=== PATIENT | female | born 1970 | race Caucasian/White ===

== ENCOUNTER 2017-02-23 13:39 | Emergency (ER) | payer OTHER ==
[~2017-02-23] VITALS: Ht 172.7 cm; Wt 86.2 kg
[2017-02-23] MEDS ORDERED: ONDANSETRON PF 4 MG/2 ML VIAL. IV ONE (14:00)
[2017-02-23] MEDS ORDERED: fentaNYL PF 100 MCG/2 ML VIAL IV ONE (14:00)
[2017-02-23 14:18] LABS: BASO # 0.1 x10^3/uL (0.0-0.2); BASO % 1 % (0-3); EOS # 0.2 x10^3/uL (0.0-0.7); EOS % 2 % (0-3); HEMOGLOBIN 14.5 g/dL (12.0-15.5); LYMPH # 2.2 x10^3/uL (1.0-4.8); LYMPH % 23 % (24-48); MEAN CORPUSCULAR HEMOGLOBIN 32 pg (25-35); MEAN CORPUSCULAR HGB CONC 35 g/dL (31-37); MEAN CORPUSCULAR VOLUME 92 fL (79-100); MONO # 0.7 x10^3/uL (0.0-1.1); MONO % 7 % (0-9); NEUT # 6.4 x10^3uL (1.8-7.7); NEUT % 67 % (31-73); PLATELET COUNT 290 x10^3/uL (140-400); RED BLOOD COUNT 4.56 x10^6/uL (3.50-5.40); RED CELL DISTRIBUTION WIDTH 13.1 % (11.5-14.5); WHITE BLOOD COUNT 9.6 x10^3/uL (4.0-11.0)
[2017-02-23 14:27] LABS: ALBUMIN 4.2 g/dL (3.4-5.0); ALBUMIN/GLOBULIN RATIO 1.1 (1.0-1.7); CALCIUM 9.6 mg/dL (8.5-10.1); CREATININE 1.1 mg/dL (0.6-1.0); GFR 53.2; POTASSIUM 3.6 mmol/L (3.5-5.1); TOTAL BILIRUBIN 0.4 mg/dL (0.2-1.0); TOTAL PROTEIN 7.9 g/dL (6.4-8.2)
--- NOTE | 2017-02-23 14:35 | PHYS DOC ---
Past History Past Medical History: Other Past Surgical History: Appendectomy, Tonsillectomy Alcohol Use: None Drug Use: None Adult General Chief Complaint Chief Complaint: MECHANICAL FALL HPI HPI Patient is a 46-year-old female presenting to the emergency department for evaluation of low back and pelvis pain status post fall shortly prior to arrival. 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 She denies any weakness numbness but says that her toes feel cold/tingly on her right side. She is mostly pointing to her right lumbar area where the pain is the worst. She denies any head neck chest abdomen or extremity pain. There is no open wounds or abrasions. She appears to be in a significant amount of pain but she is nontoxic. Review of Systems Review of Systems Constitutional: Denies fever or chills [] Eyes: Denies change in visual acuity, redness, or eye pain [] HENT: Denies nasal congestion or sore throat [] Respiratory: Denies cough or shortness of breath [] Cardiovascular: No additional information not addressed in HPI [] GI: Denies abdominal pain, nausea, vomiting, bloody stools or diarrhea [] : Denies dysuria or hematuria [] Musculoskeletal: + back pain, joint pain [] Integument: Denies rash or skin lesions [] Neurologic: Denies headache, focal weakness. + sensory changes [] Current Medications Current Medications Current Medications Medications (Trade) Dose Ordered Sig/[facility] Start Time Stop Time Status Last Admin Dose Admin Fentanyl Citrate (Fentanyl 2ml Vial) 100 mcg 1X ONCE 02/23/17 14:00 02/23/17 14:01 UNV 02/23/17 14:00 100 MCG Ondansetron HCl (Zofran) 8 mg 1X ONCE 02/23/17 14:00 02/23/17 14:01 UNV 02/23/17 14:00 8 MG Physical Exam Physical Exam Constitutional: Well developed, well nourished, no acute distress, non-toxic appearance. [] HENT: Normocephalic, atraumatic, bilateral external ears normal, oropharynx moist, no oral exudates, nose normal. [] Eyes: PERRLA, EOMI, conjunctiva normal, no discharge. [] Neck: Normal range of motion, no tenderness, supple, no stridor. [] Cardiovascular:Heart rate regular rhythm, no murmur [] Lungs & Thorax: Bilateral breath sounds clear to auscultation [] Abdomen: Bowel sounds normal, soft, no tenderness, no masses, no pulsatile masses. [] Skin: Warm, dry, no erythema, no rash. [] Back: + midline and R paraspinal tenderness, no CVA tenderness. [] Extremities: No tenderness, no cyanosis, no clubbing, ROM intact, no edema. [] Neurologic: Alert and oriented X 3, normal motor function, 5 out of 5 flexion extension of bilateral ankles and big toe. She was in too much pain to bend her knee or hip. She says on sensory exam that she has dullness to sensation of her right lateral thigh and right calf and her big toe. Current Patient Data Vital Signs Vital Signs Date Time Temp Pulse Resp B/P (MAP) Pulse Ox O2 Delivery O2 Flow Rate FiO2 02/23/17 14:00 16 97 Room Air 02/23/17 13:59 98.8 89 Lab Results Laboratory Tests Test 02/23/17 14:05 White Blood Count 9.6 x10^3/uL (4.0-11.0) Red Blood Count 4.56 x10^6/uL (3.50-5.40) Hemoglobin 14.5 g/dL (12.0-15.5) Hematocrit 42.0 % (36.0-47.0) Mean Corpuscular Volume 92 fL (79-100) Mean Corpuscular Hemoglobin 32 pg (25-35) Mean Corpuscular Hemoglobin Concent 35 g/dL (31-37) Red Cell Distribution Width 13.1 % (11.5-14.5) Platelet Count 290 x10^3/uL (140-400) Neutrophils (%) (Auto) 67 % (31-73) Lymphocytes (%) (Auto) 23 % (24-48) L Monocytes (%) (Auto) 7 % (0-9) Eosinophils (%) (Auto) 2 % (0-3) Basophils (%) (Auto) 1 % (0-3) Neutrophils # (Auto) 6.4 x10^3uL (1.8-7.7) Lymphocytes # (Auto) 2.2 x10^3/uL (1.0-4.8) Monocytes # (Auto) 0.7 x10^3/uL (0.0-1.1) Eosinophils # (Auto) 0.2 x10^3/uL (0.0-0.7) Basophils # (Auto) 0.1 x10^3/uL (0.0-0.2) Sodium Level 139 mmol/L (136-145) Potassium Level 3.6 mmol/L (3.5-5.1) Chloride Level 100 mmol/L (98-107) Carbon Dioxide Level 28 mmol/L (21-32) Anion Gap 11 (6-14) Blood Urea Nitrogen 15 mg/dL (7-20) Creatinine 1.1 mg/dL (0.6-1.0) H Estimated GFR (Cockcroft-Gault) 53.2 BUN/Creatinine Ratio 14 (6-20) Glucose Level 104 mg/dL (70-99) H Calcium Level 9.6 mg/dL (8.5-10.1) Total Bilirubin 0.4 mg/dL (0.2-1.0) Aspartate Amino Transferase (AST) 34 U/L (15-37) Alanine Aminotransferase (ALT) 54 U/L (14-59) Alkaline Phosphatase 69 U/L (46-116) Total Protein 7.9 g/dL (6.4-8.2) Albumin 4.2 g/dL (3.4-5.0) Albumin/Globulin Ratio 1.1 (1.0-1.7) EKG EKG [] Radiology/Procedures Radiology/Procedures CT of the lumbar spine without IV contrast Indication: Extreme back pain status post fall Technique: CT of the lumbar spine without IV contrast with multiplanar reformats. Comparison: None Findings: There are 5 lumbar vertebral bodies. Grade 1 anterolisthesis of L4 over L5 noted with bilateral pars defect at L4. The vertebral body heights are maintained. There is intervertebral disc space narrowing at L4-L5 with endplate sclerosis compatible with degenerative disc disease. Segmental analysis: T12-L1: No disc bulge or herniation. No facet arthropathy. No neural foramina narrowing. L1-L2: Mild circumferential disc bulge. No facet arthropathy. No neural foramina narrowing. L2-L3: Mild circumferential disc bulge. No facet arthropathy. No neural foramina narrowing. L3-L4: Mild disc bulge. No facet arthropathy. No neural foramina narrowing. L4-L5: Grade 1 anterolisthesis with protrusion of the posterior disc. Mild facet arthropathy. Moderate right neural foramina narrowing. Mild left neural foramina narrowing. L5-S1: No disc bulge. No facet arthropathy. No neural foramina narrowing. The visualized soft tissues in the abdomen and pelvis are within normal limits. Impression: 1. Bilateral L4 pars defect with grade 1 anterolisthesis of L4 over L5 with moderate narrowing of right neural foramina. 2. Moderate L4-L5 degenerative disc disease. PQRS Compliance Statement: One or more of the following individualized dose reduction techniques were utilized for this examination: 1. Automated exposure control 2. Adjustment of the mA and/or kV according to patient size 3. Use of iterative reconstruction technique DICTATED AND SIGNED BY: MARILOU BERUMEN DATE: 02/23/171430 Exam performed: CT pelvis without contrast. History: Patient fell today, extreme back and pelvic pain. Date of service: 02/23/17. Comparison: None available Technique: Contiguous helical acquisitions are obtained through the pelvis without IV contrast. Sagittal and coronal reformatted images are obtained and reviewed. Findings: Normal alignment of both hip and sacroiliac joint is preserved. There is no acute fracture or dislocation. There is grade 1 anterolisthesis of L4 over L5 with disc space narrowing. Tiny clinical hernia. The small and large bowel loops are nondilated and unremarkable. Occasional sigmoid diverticulosis without acute diverticulitis Urinary bladder is distended. Uterus is anteverted. Impression: No acute abnormality seen in the CT pelvis. PQRS Compliance Statement: One or more of the following individualized dose reduction techniques were utilized for this examination: 1. Automated exposure control 2. Adjustment of the mA and/or kV according to patient size 3. Use of iterative reconstruction technique DICTATED AND SIGNED BY: DECLAN BENITEZ MD DATE: 02/23/17 1439 Course & Med Decision Making Course & Med Decision Making Patient with L4 bilateral pars fracture with narrowing of her disc space and anterolisthesis. She has some neurologic deficits but no motor deficits on exam. Given she is having severe pain and spasm with neurologic changes I spoke to the nurse practitioner for Dr. Leary. They agreed to see the patient at [facility]. They wanted an MRI to be done today if possible and for the hospitalist to admit the patient. Patient accepted by Dr. Simons. Dawit Disclaimer Dawit Disclaimer This chart was dictated in whole or in part using Voice Recognition software in a busy, high-work load, and often noisy Emergency Department environment. It may contain unintended and wholly unrecognized errors or omissions. Departure Departure: Impression: Primary Impression: Pars defect of lumbar spine Additional Impressions: Anterolisthesis Neural foraminal stenosis of lumbar spine Disposition: 05 XFER OTHER ([facility]) Condition: STABLE Referrals: PINKY HINOJOSA MD (PCP) Problem Qualifiers LOVE SHELTON DO Feb 23, 2017 14:35
--- NOTE | 2017-02-23 14:42 | RAD ---
CT of the lumbar spine without IV contrast Indication: Extreme back pain status post fall Technique: CT of the lumbar spine without IV contrast with multiplanar reformats. Comparison: None Findings: There are 5 lumbar vertebral bodies. Grade 1 anterolisthesis of L4 over L5 noted with bilateral pars defect at L4. The vertebral body heights are maintained. There is intervertebral disc space narrowing at L4-L5 with endplate sclerosis compatible with degenerative disc disease. Segmental analysis: T12-L1: No disc bulge or herniation. No facet arthropathy. No neural foramina narrowing. L1-L2: Mild circumferential disc bulge. No facet arthropathy. No neural foramina narrowing. L2-L3: Mild circumferential disc bulge. No facet arthropathy. No neural foramina narrowing. L3-L4: Mild disc bulge. No facet arthropathy. No neural foramina narrowing. L4-L5: Grade 1 anterolisthesis with protrusion of the posterior disc. Mild facet arthropathy. Moderate right neural foramina narrowing. Mild left neural foramina narrowing. L5-S1: No disc bulge. No facet arthropathy. No neural foramina narrowing. The visualized soft tissues in the abdomen and pelvis are within normal limits. Impression: 1. Bilateral L4 pars defect with grade 1 anterolisthesis of L4 over L5 with moderate narrowing of right neural foramina. 2. Moderate L4-L5 degenerative disc disease. PQRS Compliance Statement: One or more of the following individualized dose reduction techniques were utilized for this examination: 1. Automated exposure control 2. Adjustment of the mA and/or kV according to patient size 3. Use of iterative reconstruction technique
--- NOTE | 2017-02-23 14:44 | RAD ---
Exam performed: CT pelvis without contrast. History: Patient fell today, extreme back and pelvic pain. Date of service: 02/23/17. Comparison: None available Technique: Contiguous helical acquisitions are obtained through the pelvis without IV contrast. Sagittal and coronal reformatted images are obtained and reviewed. Findings: Normal alignment of both hip and sacroiliac joint is preserved. There is no acute fracture or dislocation. There is grade 1 anterolisthesis of L4 over L5 with disc space narrowing. Tiny clinical hernia. The small and large bowel loops are nondilated and unremarkable. Occasional sigmoid diverticulosis without acute diverticulitis Urinary bladder is distended. Uterus is anteverted. Impression: No acute abnormality seen in the CT pelvis. PQRS Compliance Statement: One or more of the following individualized dose reduction techniques were utilized for this examination: 1. Automated exposure control 2. Adjustment of the mA and/or kV according to patient size 3. Use of iterative reconstruction technique
[2017-02-23] MEDS ORDERED: PROMETHAZINE 25 MG in IV NORMAL SALINE 50ML 50 ML IV PRN (15:15)
[2017-02-23] MEDS ORDERED: PROMETHAZINE 25 MG/ML VIAL IV ONE (15:17)
[2017-02-23] MEDS ORDERED: IV NORMAL SALINE 50ML 50 ML ONE (15:17)
[2017-02-23] MEDS ORDERED: IV NORMAL SALINE 500ML 500 ML ONE (15:20)
[2017-02-23] MEDS ORDERED: MORPHINE SULFATE 4 MG/ML DISP.SYRIN. IV ONE (15:45)
[2017-02-23 16:00] VITALS: BP 158/71
== END 2017-02-23 16:24 | disposition short-term general hospital (02) ==
LOC: ER 13:39
DX: M43.06 Spondylolysis, lumbar region (principal); M48.06 Spinal stenosis, lumbar region; W01.0XXA Fall on same level from slipping, tripping and stumbling without subsequent striking against object, initial encounter; Y93.89 Activity, other specified; Y99.8 Other external cause status; Y92.89 Other specified places as the place of occurrence of the external cause
CPT/HCPCS: 36415; 51702; 72131; 72192; 80053; 85025; 85610; 85730; 96365; 96375; 99285; J2270; J2405; J2550; J3010

== ENCOUNTER 2017-07-16 15:00 | Emergency (ER) | payer OTHER ==
[~2017-07-16] VITALS: Ht 172.7 cm; Wt 86.2 kg
--- NOTE | 2017-07-16 15:17 | PHYS DOC ---
Past History Past Medical History: Other Past Surgical History: Appendectomy, Tonsillectomy Alcohol Use: None Drug Use: None Adult General Chief Complaint Chief Complaint: FEVER HPI HPI Patient is a 47 year old F who presents with fever. Her only other symptoms is a mild to moderate headache. She also describes cough and mild shortness of breath. She notes moderate nasal congestion with moderate drainage. She did have back surgery about 2 weeks ago. She developed these symptoms today. She did contact her surgeon who advised her to come to the ED. She has not take any of her medications today. She does have a history of Crohn Review of Systems Review of Systems Constitutional: Negative except history of present illness Eyes: Denies change in visual acuity, redness, or eye pain [] HENT: Neg except HPI Respiratory: Neg except HPI Cardiovascular: No additional information not addressed in HPI [] GI: Denies nausea, vomiting, bloody stools or diarrhea [] : Denies dysuria or hematuria [] Musculoskeletal: Denies back pain or joint pain [] Integument: Denies rash or skin lesions [] Neurologic: Denies headache, focal weakness or sensory changes [] Endocrine: Denies polyuria or polydipsia [] All other systems were reviewed and found to be within normal limits, except as documented in this note. Family History Family History No pertinent family medical history was reported Current Medications Current Medications Current medications were reviewed Allergies Allergies Allergies Coded Allergies Type Severity Reaction Last Updated Verified No Known Drug Allergies 02/23/17 No Physical Exam Physical Exam Constitutional: Well developed, well nourished, no acute distress, non-toxic appearance. [] HENT: Normocephalic, atraumatic, bilateral external ears normal, oropharynx moist, no oral exudates, mild nasal mucosal edema and erythema noted bilaterally Eyes: EOMI, conjunctiva normal, no discharge. [] Neck: Normal range of motion, no tenderness, supple, no stridor. [] Cardiovascular:Heart rate regular rhythm, Lungs & Thorax: Bilateral breath sounds clear to auscultation rhonchi noted in the right lower lobe Abdomen: Bowel sounds normal, soft, no tenderness, no masses, no pulsatile masses. [] Mild generalized tenderness worse in the right lower quadrant Skin: Warm, dry, no erythema, no rash. [] Surgical incision inspected on the lumbar spine noted to be well granulated well approximated and not noted to have any drainage. No surrounding erythema was noted the superior margin does not have scab over it Back: No tenderness, no CVA tenderness. [] Extremities: No tenderness, no cyanosis, no clubbing, ROM intact, no edema. [] Neurologic: Alert and oriented X 3, normal motor function, normal sensory function, no focal deficits noted. [] Psychologic: Affect normal, judgement normal, mood normal. [] Current Patient Data Vital Signs Vital Signs Date Time Temp Pulse Resp B/P (MAP) Pulse Ox O2 Delivery O2 Flow Rate FiO2 07/16/17 17:58 118 18 176/96 (122) 97 Room Air 07/16/17 16:48 101.3 122 18 137/87 (104) 96 Room Air 07/16/17 16:46 18 96 Room Air 07/16/17 15:46 18 99 Room Air 07/16/17 15:21 103.2 122 18 96 Room Air Lab Results Laboratory Tests Test 07/16/17 15:16 07/16/17 16:45 Influenza Type A (Rapid) Negative (NEGATIVE) Influenza Type B (Rapid) Negative (NEGATIVE) White Blood Count 17.9 x10^3/uL (4.0-11.0) Red Blood Count 4.13 x10^6/uL (3.50-5.40) Hemoglobin 13.3 g/dL (12.0-15.5) Hematocrit 38.1 % (36.0-47.0) Mean Corpuscular Volume 92 fL (79-100) Mean Corpuscular Hemoglobin 32 pg (25-35) Mean Corpuscular Hemoglobin Concent 35 g/dL (31-37) Red Cell Distribution Width 12.9 % (11.5-14.5) Platelet Count 301 x10^3/uL (140-400) Neutrophils (%) (Auto) 88 % (31-73) Lymphocytes (%) (Auto) 7 % (24-48) Monocytes (%) (Auto) 5 % (0-9) Eosinophils (%) (Auto) 0 % (0-3) Basophils (%) (Auto) 0 % (0-3) Neutrophils # (Auto) 15.7 x10^3uL (1.8-7.7) Lymphocytes # (Auto) 1.3 x10^3/uL (1.0-4.8) Monocytes # (Auto) 0.8 x10^3/uL (0.0-1.1) Eosinophils # (Auto) 0.0 x10^3/uL (0.0-0.7) Basophils # (Auto) 0.1 x10^3/uL (0.0-0.2) Sodium Level 135 mmol/L (136-145) Potassium Level 3.5 mmol/L (3.5-5.1) Chloride Level 96 mmol/L (98-107) Carbon Dioxide Level 26 mmol/L (21-32) Anion Gap 13 (6-14) Blood Urea Nitrogen 10 mg/dL (7-20) Creatinine 1.0 mg/dL (0.6-1.0) Estimated GFR (Cockcroft-Gault) 59.2 BUN/Creatinine Ratio 10 (6-20) Glucose Level 131 mg/dL (70-99) Calcium Level 9.2 mg/dL (8.5-10.1) Total Bilirubin 0.4 mg/dL (0.2-1.0) Alanine Aminotransferase (ALT/SGPT) 63 U/L (14-59) Alkaline Phosphatase 90 U/L (46-116) Total Protein 7.3 g/dL (6.4-8.2) Albumin 3.3 g/dL (3.4-5.0) Albumin/Globulin Ratio 0.8 (1.0-1.7) Lipase 101 U/L (73-393) EKG EKG [] Radiology/Procedures Radiology/Procedures CT SCAN OF THE ABDOMEN AND PELVIS WITH IV CONTRAST. History: Lower abdominal pain and fever and back surgery 2 weeks ago Comparison: None. Procedure: Contiguous axial images of the abdomen and pelvis were performed after the administration of 75 cc of Omni 300 IV contrast and without oral contrast. CT Abdomen with contrast: Findings: There is patchy opacity in the right middle lobe. Liver: Hypoattenuating but homogeneous Spleen: Unremarkable Pancreas: Unremarkable Adrenal Glands: Unremarkable Kidneys: Unremarkable There is no mass or lymphadenopathy. There is no free air. There is no free fluid. There is been fusion of L4-L5. CT Pelvis with Contrast: Findings: The urinary bladder appears normal. There is no free fluid. There is no lymphadenopathy. The appendix is not well seen. Impression: 1. Fatty infiltration of the liver. 2. Right middle lobe infiltrate could be discoid atelectasis or pneumonia. Course & Med Decision Making Course & Med Decision Making Pertinent Labs and Imaging studies reviewed. (See chart for details) [] Dragon Disclaimer Dragon Disclaimer This electronic medical record was generated, in whole or in part, using a voice recognition dictation system. Departure Departure: Impression: Primary Impression: Pneumonia Additional Impression: Sepsis Disposition: ADMITTED INPATIENT Condition: STABLE Referrals: PINKY HINOJOSA MD (PCP) Problem Qualifiers Primary Impression: Pneumonia Pneumonia type: due to unspecified organism Laterality: right Lung location : lower lobe of lung Qualified Codes: J18.1 - Lobar pneumonia, unspecified organism Additional Impression: Sepsis Sepsis type: sepsis due to unspecified organism Qualified Codes: A41.9 - Sepsis, unspecified organism XENA KAUFMAN MD Jul 16, 2017 15:17
[2017-07-16] MEDS ORDERED: HYDROcodone/APAP 5/325MG 1 TAB TABLET PO ONE (15:50)
[2017-07-16] MEDS ORDERED: oxyCODONE/APAP 5/325 1 TAB TABLET PO ONE (16:00)
[2017-07-16] MEDS ORDERED: ACETAMINOPHEN 500 MG TABLET PO ONE ×2 (16:00→22:30)
[2017-07-16 16:11] LABS: INFLUENZA A PATIENT NEGATIVE (NEGATIVE); INFLUENZA B PATIENT NEGATIVE (NEGATIVE)
[2017-07-16] MEDS ORDERED: IV NORMAL SALINE 1,000ML 1,000 ML IV ONE ×3 (16:30→22:30)
[2017-07-16] MEDS ORDERED: IOHEXOL 300 MG/ML 75 ML VIAL. IV ONE (17:00)
[2017-07-16 17:12] LABS: BASO # 0.1 x10^3/uL (0.0-0.2); BASO % 0 % (0-3); EOS % 0 % (0-3); HEMATOCRIT 38.1 % (36.0-47.0); HEMOGLOBIN 13.3 g/dL (12.0-15.5); LYMPH # 1.3 x10^3/uL (1.0-4.8); LYMPH % 7 % (24-48); MEAN CORPUSCULAR HEMOGLOBIN 32 pg (25-35); MEAN CORPUSCULAR HGB CONC 35 g/dL (31-37); MEAN CORPUSCULAR VOLUME 92 fL (79-100); MONO # 0.8 x10^3/uL (0.0-1.1); MONO % 5 % (0-9); NEUT # 15.7 x10^3uL (1.8-7.7); NEUT % 88 % (31-73); PLATELET COUNT 301 x10^3/uL (140-400); RED BLOOD COUNT 4.13 x10^6/uL (3.50-5.40); RED CELL DISTRIBUTION WIDTH 12.9 % (11.5-14.5); WHITE BLOOD COUNT 17.9 x10^3/uL (4.0-11.0)
[2017-07-16 17:18] LABS: ALBUMIN 3.3 g/dL (3.4-5.0); ALBUMIN/GLOBULIN RATIO 0.8 (1.0-1.7); CALCIUM 9.2 mg/dL (8.5-10.1); GFR 59.2; POTASSIUM 3.5 mmol/L (3.5-5.1); TOTAL BILIRUBIN 0.4 mg/dL (0.2-1.0); TOTAL PROTEIN 7.3 g/dL (6.4-8.2)
--- NOTE | 2017-07-16 17:27 | RAD ---
CT SCAN OF THE ABDOMEN AND PELVIS WITH IV CONTRAST. History: Lower abdominal pain and fever and back surgery 2 weeks ago Comparison: None. Procedure: Contiguous axial images of the abdomen and pelvis were performed after the administration of 75 cc of Omni 300 IV contrast and without oral contrast. CT Abdomen with contrast: Findings: There is patchy opacity in the right middle lobe. Liver: Hypoattenuating but homogeneous Spleen: Unremarkable Pancreas: Unremarkable Adrenal Glands: Unremarkable Kidneys: Unremarkable There is no mass or lymphadenopathy. There is no free air. There is no free fluid. There is been fusion of L4-L5. CT Pelvis with Contrast: Findings: The urinary bladder appears normal. There is no free fluid. There is no lymphadenopathy. The appendix is not well seen. Impression: 1. Fatty infiltration of the liver. 2. Right middle lobe infiltrate could be discoid atelectasis or pneumonia. PQRS Compliance Statement: One or more of the following individualized dose reduction techniques were utilized for this examination: 1. Automated exposure control 2. Adjustment of the mA and/or kV according to patient size 3. Use of iterative reconstruction technique Electronically signed by: Salo Chavarria III, MD (07/16/2017 5:23 PM) [facility]
[2017-07-16] MEDS ORDERED: AZITHROMYCIN 500 MG in IV NORMAL SALINE 250ML 250 ML IV ONE (18:00)
[2017-07-16] MEDS ORDERED: cefTRIAXone IV Push 1 GM VIAL. IVP ONE (18:00)
[2017-07-16] MEDS ORDERED: IV NORMAL SALINE 250ML 250 ML ONE (18:13)
[2017-07-16] MEDS ORDERED: AZITHROMYCIN 500 MG VIAL. IV ONE (18:14)
[2017-07-16] MEDS ORDERED: VANCOMYCIN PER PHARMACY MC PRN (18:15)
[2017-07-16] MEDS ORDERED: VANCOMYCIN 2 GM in IV NORMAL SALINE 500ML 500 ML IV ONE (18:30)
[2017-07-16] MEDS ORDERED: ONDANSETRON PF 4 MG/2 ML VIAL. IV ONE (20:00)
[2017-07-16] MEDS ORDERED: IV NORMAL SALINE 500ML 500 ML ONE (20:53)
[2017-07-16] MEDS ORDERED: VANCOMYCIN 1 GM VIAL. ONE (20:54)
[2017-07-16 21:23] VITALS: BP 114/62
[2017-07-16 22:26] LABS: % LYMPHS 11 % (24-48); % MONOS 5 % (0-10); % SEGS 84 % (35-66)
[2017-07-16 22:28] LABS: OVALOCYTES OCC; PLT ESTIMATE INCREASED (ADEQUATE); POLYCHROMASIA SLIGHT
[2017-07-16 23:52] LABS: BILIRUBIN,URINE NEG (NEG); CLARITY,URINE CLEAR; COLOR,URINE STRAW; GLUCOSE,URINE NEG (NEG); NITRITE,URINE NEG (NEG); RBC,URINE OCC /HPF (0-2); UROBILINOGEN,URINE 0.2 mg/dL (0.2 mg/dL); WBC,URINE 0 /HPF (0-4)
[2017-07-16 23:53] LABS: BACTERIA,URINE FEW /HPF (0-FEW); SQUAMOUS EPITHELIAL CELL,UR FEW /LPF
--- NOTE | 2017-07-17 07:44 | RAD ---
2 view chest 07/16/2017 Clinical indication: Shortness of breath. Comparison: None. Findings: Hypoinflation of both lungs with patchy opacities in the right middle lobe. Cardiac and mediastinal silhouettes are unremarkable. No pleural effusion or pneumothorax. There is multilevel thoracic spondylosis. Impression: Patchy right middle lobe opacities may represent atelectasis, aspiration or pneumonia.
== END 2017-07-16 23:56 | disposition short-term general hospital (02) ==
LOC: ER 15:00
DX: A41.9 Sepsis, unspecified organism (principal); J18.1 Lobar pneumonia, unspecified organism; K50.90 Crohn's disease, unspecified, without complications; Z98.890 Other specified postprocedural states
CPT/HCPCS: 36415; 71046; 74177; 80053; 81001; 83605; 83690; 85007; 85025; 87040; 87804; 96361; 96365; 96366; 96375; 99285; J0456; J0696; J2405; J3010; J3370; J7040; J7050; Q9967; J7030

== ENCOUNTER → 2017-10-04 | Outpatient (CLI) | payer OTHER ==
[~2017-10-04] MED LIST: BARIUM SULFATE 60% 355 ML SUSP PO ONE
--- NOTE | 2017-10-04 12:11 | RAD ---
SMALL BOWEL SERIES History: Abdominal pain, blood in stools Comparison: None. Findings: C[employer] D[employer] Helper radiograph demonstrates retained stool greatest in the right colon. There is posterolateral fusion hardware L4-5. There was normal transit of the contrast through the small bowel, seen in the colon at about 1 hour. Small bowel caliber is overall considered within normal limits, no definitive fistula of or stricture identified. Terminal ileum caliber is within normal limits, appearance of mild wall irregularity. Fluoroscopy time: 1.3 minutes, 4 fluoroscopic images Impression: 1. There is mild wall irregularity of the terminal ileum which could be seen with inflammatory bowel disease, no appreciable stricture or fistula identified. 2. There is retained stool greatest of the right colon. Electronically signed by: Brandon Torres MD (10/04/2017 12:08 PM) [id number]
== END | disposition home or self-care (01) ==
LOC: RAD 08:57
PROVIDERS: ATTEND Internal Medicine Gastroenterology
DX: R10.84 Generalized abdominal pain (principal); Z87.19 Personal history of other diseases of the digestive system
CPT/HCPCS: 74250